=== PATIENT | male | born 1990 | race Hispanic/Latino ===

== ENCOUNTER 2022-04-05 09:25 | Outpatient (CLI) | payer OTHER ==
[~2022-04-05 09:25] MED LIST: Magnevist 469MG/ML 20 ML VIAL ONE
== END 2022-04-05 09:26 | disposition home or self-care (01) ==
LOC: MRI 09:25
PROVIDERS: ATTEND Nurse Practitioner Family
DX: M25.512 Pain in left shoulder (principal)
CPT/HCPCS: 73225; A9579; C8935